=== PATIENT | male | born 1970 | race Caucasian/White ===

== ENCOUNTER → 2018-07-17 | Outpatient (CLI) | payer OTHER ==
[~2018-07-17] MED LIST: AMLO5TAB7 PO; ATOR80TA2 PO; FEBU40TA PO; FLUT16SP NS; VALS160T3 PO
--- NOTE | 2018-07-17 13:35 | PAIN ---
DATE OF SERVICE: 07/17/2018 INITIAL CONSULTATION FOR PAIN CLINIC CHIEF COMPLAINT: Neck and right upper extremity pain. HISTORY OF PRESENT ILLNESS: This is a 47-year-old male who presents with history of pain for about 2 years, increasing in the base of the neck and right upper extremity and shoulder, into the biceps and triceps as well as into the hand with numbness and tingling in the fourth and fifth fingers. The patient is status post anterior cervical diskectomy and fusion in 08/2016, shows with good results initially, but the pain is returning now in the right neck and right upper extremity as described. The patient reports it is radiating, sharp, sometimes shooting neck and shoulder, tingling into the hand with radiation to the right arm, worse with activity, raising his hand over his head on the right side and with repetitive motions or weight lifting and driving a car with his right hand. The patient reports it does not awaken him from sleep at night or affects his bowel or bladder control or his ability to walk or get around. He is not using any assistive devices. The patient has had epidural injections in the past as well as physical therapy, chiropractic treatment is ongoing. Chiropractic treatment was helpful, the others were not significantly helpful, but these were prior to his surgery as well. The patient is still doing exercises and chiropractic treatments currently. The patient feels it does help by about 50%, but is limited to 1-2 days. The patient reports no loss of motor function, but significant fatigability in the right upper extremity with repetitive motions. He has not been dropping items, however. The patient did have an MRI scan of cervical spine showing a fusion with anterior hardware C5-C6 and C6-C7 without significant central canal narrowing. The patient reports a disability rating from 0-10, 10 being the worst, is a 5 with family and home responsibilities, recreation, social activity, occupation and sexual behavior, 2 with self-care and 0 with life support activities. PAST MEDICAL HISTORY: Significant for hypertension, wears eyeglasses. History of gout. PREVIOUS SURGERY: Includes right knee scope, left ankle surgery, cervical fusion and right ankle surgery. CURRENT MEDICATIONS: Include Diovan, fluticasone, Uloric, amlodipine and Lipitor. ALLERGIES: The patient has no known drug allergies. FAMILY HISTORY: Significant for no major medical conditions or problems that he is aware of. SOCIAL HISTORY: The patient does not drink alcohol, does not smoke, does not use any illegal, illicit or recreational drugs or other substances. The patient is and has no children, living at home, lives locally in [place], [place] and is active . REVIEW OF SYSTEMS: The patient's review of systems is positive for those items mentioned in history of present illness. All systems reviewed and otherwise negative. It is complete, full and well documented on the patient's chart. PHYSICAL EXAMINATION: VITAL SIGNS: The patient's blood pressure is 137/87, pulse 73, respirations 16, temperature 98.1 degrees Fahrenheit. Height 5 feet 7 inches. Weighs 233 pounds. GENERAL: The patient is awake, alert, oriented, appropriate, very pleasant demeanor. HEENT: Head shows normocephalic, atraumatic. Extraocular movements are intact and symmetrical. Oral cavity: Mucous membranes moist and pink. Dentition is intact. NECK: Shows anterior throat supple without palpable lymphadenopathy noted. Swallow reflex symmetrical. CHEST: Shows normal on inspection. Breath sounds clear to auscultation bilaterally. HEART: Shows S1, S2 clear. No murmurs auscultated. ABDOMEN: Soft, nontender, nondistended. No palpable organomegaly is noted. No rebound or guarding demonstrated. BACK: Shows spine grossly in the midline. Normal appearing thoracic kyphosis and lumbar lordotic curvature. Cervical paraspinous muscle shows symmetrical on inspection, on palpation shows some moderate tenderness diffusely bilaterally, but only diffusely without significant radiation. The patient has good rotational motion of the cervical spine without significant pain reported past 45 degrees, right and left lateral as well as full rearward extension, full forward flexion without significant discomfort or pain reported. The patient's upper extremities show deep tendon reflexes at 2+ in the biceps and triceps tendons and are equal. Motor exam shows rn travel strength rated at 5/5 as is bicep and tricep flexion bilaterally without loss of strength. Shoulder shrug is strong and intact without loss of strength on resistance, as is abduction of the shoulder to 90 degrees without loss of strength on resistance. There was some minor pain reported in the right shoulder and bicep with this maneuver. The patient's peripheral pulses are 2+ radial distribution. No peripheral edema is noted bilaterally. The patient's skin is warm and dry, good turgor. No edema. No sores, rashes or bruising. IMPRESSION: 1. This is a 47-year-old male with approximate 2-year history of increasing pain, base of the neck, right upper extremity in a radicular fashion following a C7-T1 dermatomal distribution. 2. History of hypertension. 3. Gout. PLAN: Options were discussed with the patient including conservative medical management, physical therapy, interventional techniques, and he would like to pursue interventional techniques. We discussed a cervical epidural steroid injection using description as well as anatomical models to describe the procedure. Risks were discussed as well as the procedure. The patient will wait for preauthorization from his insurance provider, and we will plan on cervical epidural steroid injection once that is obtained. The patient will continue with stretching and strengthening exercises as well in the meantime. We will have him return in approximately 1 week to plan on cervical epidural steroid injection on return. FADUMO BARON MD DR: HEBERT/jadon JOB#: [id number] / [id number]
== END | disposition home or self-care (01) ==
LOC: PNCL 08:03
PROVIDERS: ATTEND Anesthesiology
DX: M79.621 Pain in right upper arm (principal); M54.2 Cervicalgia; I10 Essential (primary) hypertension; M10.9 Gout, unspecified; Z98.890 Other specified postprocedural states; Z79.899 Other long term (current) drug therapy
CPT/HCPCS: G0463

== ENCOUNTER → 2018-07-24 | Outpatient (CLI) | payer OTHER ==
[~2018-07-24] MED LIST changes: +IOHEXOL 180 MG/ML 10 ML VIAL. ONE; +methylPREDNISolone ACETATE 40 MG/ML VIAL. ONE; +methylPREDNISolone ACETATE 80 MG/ML VIAL. ONE
--- NOTE | 2018-07-24 08:41 | PAIN ---
DATE OF SERVICE: 07/24/2018 DIAGNOSES: Cervical radiculopathy with cervical degenerative disk disease and post-cervical laminectomy syndrome. HISTORY OF PRESENT ILLNESS: The patient is a 47-year-old male who returns for followup status post initial evaluation and preauthorization for cervical epidural steroid injection. The patient obtained that, he returns today wishing to proceed. The patient still reports pain. The patient's neck and right upper extremity was previously without significant change. The patient reports it is a 7 on a scale of 10 at its worst, 5 on average, 5 at its least and is a 5 today. The patient reports tingling, radiating, becoming more constant, more noticeable with repetitive motions, weightbearing with the right upper extremity, raising above his head with his right arm. The patient reports it is tingling and becoming more constant in the hand as well. The patient reports no new motor or sensory deficits, no new bowel or bladder incontinence. The patient reports it generally does not awaken him from sleep at night. PHYSICAL EXAMINATION: VITAL SIGNS: The patient's blood pressure 142/96, pulse 75, respirations are 16, temperature 97.7 degrees Fahrenheit. Height 5 feet 7 inches, weight is 234 pounds. GENERAL: The patient is awake, alert, oriented, appropriate, very pleasant demeanor. HEENT: Head shows normocephalic, atraumatic. Extraocular movements are intact and symmetrical. Oral cavity: Mucous membranes moist and pink. Dentition is intact. NECK: Shows anterior throat supple without palpable lymphadenopathy noted. Swallow reflex is symmetrical. CHEST: Shows normal with inspection. Breath sounds clear to auscultation bilaterally. HEART: Shows S1, S2 clear. No murmurs auscultated. ABDOMEN: Soft, nontender, nondistended. No palpable organomegaly is noted. No rebound or guarding demonstrated. BACK: Shows spine grossly in the midline. Normal appearing thoracic kyphosis and cervical lordotic curvature. Cervical paraspinous muscle shows symmetrical on inspection, on palpation shows some moderate tenderness diffusely, but only diffusely without significant radiation. The patient has good rotational motion of cervical spine, both laterally as well as extension and flexion without significant difficulty. EXTREMITIES: Upper extremities show deep tendon reflexes 2+ in the biceps and triceps tendons. Motor exam is 5/5 info analyst strength, bicep and tricep flexion equal and symmetrical. The patient's upper extremities show peripheral pulses are 2+ radial distribution bilaterally. No edema is noted. Options were discussed with the patient. The patient's old chart was reviewed, his current medication regimen updated. Current review of systems updated today as well. We will proceed with a cervical epidural steroid injection today with fluoroscopic guidance. Risks were again discussed including, but not limited to bleeding, infection, possibility of epidural hematoma, subsequent neurologic compromise, dural puncture, headaches, spinal cord and/or nerve damage, side effects of steroid medication and poor results regarding pain control. The patient understands and wished to proceed. The patient will return to clinic in approximately 2 weeks for followup. He was counseled on return appointment, activity level and side effects to be aware of. DIAGNOSES: Cervical radiculopathy with cervical degenerative disk disease and cervical post-laminectomy syndrome. PROCEDURE: Cervical epidural steroid injection, translaminar approach C6-C7 level using C-arm fluoroscopic guidance under sterile prep and drape using local anesthetic. MEDICATION INJECTED: A total of 120 mg Depo-Medrol, plus 5 mL of preservative-free normal saline and 2 mL of Isovue for contrast. CONDITION AT DISCHARGE: Stable. The patient tolerated the procedure well, had no complications. FADUMO BARON MD DR: HEBERT/jadon JOB#: [id number] / [id number]
== END | disposition home or self-care (01) ==
LOC: PNCL 07:42
PROVIDERS: ATTEND Anesthesiology
DX: M50.123 Cervical disc disorder at C6-C7 level with radiculopathy (principal); M96.1 Postlaminectomy syndrome, not elsewhere classified
CPT/HCPCS: 62321; J1030; J1040; Q9965